=== PATIENT | female | born 1980 | race Caucasian/White ===

== ENCOUNTER 2021-09-29 14:33 | Outpatient (CLI) | payer BC | END 2021-09-29 14:34 | disposition home or self-care (01) | LOC: BICULT 14:33 | PROVIDERS: ATTEND Obstetrics & Gynecology | DX: N93.9 Abnormal uterine and vaginal bleeding, unspecified (principal); D25.9 Leiomyoma of uterus, unspecified | CPT/HCPCS: 76856; 93976 ==